=== PATIENT | male | born 1945 | race Hispanic/Latino ===

== ENCOUNTER 2019-02-15 17:21 | Inpatient (IN) | payer MEDICARE ==
[~2019-02-15] VITALS: Ht 177.8 cm; Wt 111.1 kg
[2019-02-15] MEDS ORDERED: ASPIRIN 81 MG CHEW TAB PO ONE (18:00)
[2019-02-15] MEDS ORDERED: LEVOTHYROXINE75 MCG PO (18:08)
[2019-02-15] MEDS ORDERED: ASPIR 8181 MG PO (18:08)
[2019-02-15] MEDS ORDERED: CLONIDINE HCL0.1 MG PO (18:08)
[2019-02-15] MEDS ORDERED: TERAZOSIN HCL5 MG PO (18:08)
[2019-02-15] MEDS ORDERED: AMLODIPINE BESY10 MG PO (18:08)
[2019-02-15 18:25] LABS: BASOPHILS # (AUTO) 0.1 (0.0-0.1); BASOPHILS % 0.7 % (0.0-1.0); EOSINOPHILS # (AUTO) 0.5 (0.0-0.4); EOSINOPHILS % 5.3 % (0.0-6.0); HEMATOCRIT 37.4 % (38.2-49.6); HEMOGLOBIN 12.4 g/dL (14.0-18.0); LYMPHOCYTES # (AUTO) 2.7 (1.0-3.2); LYMPHOCYTES % 27.3 % (18.0-39.1); MEAN CORPUSCULAR HEMOGLOBIN 29.5 pg (28-32); MEAN CORPUSCULAR HGB CONC 33.2 g/dL (31-35); MEAN CORPUSCULAR VOLUME 88.8 fL (81-99); MONOCYTES # (AUTO) 0.6 (0.2-0.8); MONOCYTES % 6.4 % (4.4-11.3); PLATELET COUNT 271 x10e3/uL (140-360); RED BLOOD COUNT 4.21 x10e6/uL (4.3-5.7); RED CELL DISTRIBUTION WIDTH 13.4 % (11.7-14.4)
[2019-02-15 18:32] LABS: INR 0.96; PROTHROMBIN TIME 13.3 seconds (11.9-14.5)
[2019-02-15 18:33] LABS: PARTIAL THROMBOPLASTIN TIME 32.6 seconds (23.8-35.5)
[2019-02-15 18:42] LABS: ALANINE AMINOTRANSFERASE 15 IU/L (0-55); ALBUMIN 3.4 g/dL (3.5-5.0); ALBUMIN/GLOBULIN RATIO 0.9 (0.8-2.0); ALKALINE PHOSPHATASE 90 IU/L (40-150); ANION GAP 13.6 mmol/L (8-16); BLOOD UREA NITROGEN 13 mg/dL (7-26); BUN/CREATININE RATIO 11 (6-25); CALCIUM 9.1 mg/dL (8.4-10.2); CARBON DIOXIDE 24 mmol/L (22-29); CHLORIDE 104 mmol/L (98-107); CREATINE KINASE 151 IU/L (30-200); CREATININE, SERUM 1.14 mg/dL (0.72-1.25); EST GLOMERULAR FILTRATION RATE > 60 ML/MIN (60-); GLUCOSE 107 mg/dL (74-118); POTASSIUM 3.6 mmol/L (3.5-5.1); SODIUM 138 mmol/L (136-145)
--- NOTE | 2019-02-15 19:41 | Diagnostic Imaging Report ---
A single frontal view of the chest. HISTORY: Chest pain COMPARISON: None available. DISCUSSION: Portable technique, limits sensitivity of the exam. Soft tissue attenuation partially limits sensitivity of the exam. Overlying monitoring leads. Tubes/Lines: None Lungs and pleura: Low lung volumes result in bibasilar vascular crowding, accentuation of the pulmonary interstitial markings, central pulmonary vasculature, and the cardiac silhouette. Allowing for these limitations, the findings are as follows: No evidence of a consolidative pneumonia or pulmonary alveolar edema. No definite pleural effusion or pneumothorax is identified. Heart and mediastinum: The cardiomediastinal silhouette appears unremarkable. Bones and soft tissues: Multiple median sternotomy wires. IMPRESSION: No acute radiographic abnormality. Signed by: Dr. Raymond Jefferson D.O., M.M.M. on 02/15/2019 7:37 PM
[2019-02-15] MEDS ORDERED: ENOXAPARIN INJ 80 MG/0.8 ML SYR SC SCH (21:00)
[2019-02-15] MEDS: CARVEDILOL 12.5 MG TAB PO SCH (21:55)
[2019-02-15] MEDS: BENZONATATE 100 MG CAP PO PRN (21:56)
--- NOTE | 2019-02-15 22:30 | NUR ---
patient came from ER, awake alert oriented, is with him, no distress noted. vitals checked, he ambulates with minimum help, will continue to monitor.
[2019-02-15 22:51] VITALS: BP 158/80
[2019-02-16] VITALS (8 sets, daily range): BP systolic 119–157; BP diastolic 55–88
--- NOTE | 2019-02-16 01:55 | NUR ---
patient awaken to draw blood. blood sent to lab for cardiac markers check.
[2019-02-16 02:28] LABS: CREATINE KINASE MB 1.4 ng/mL (0-5.0)
[2019-02-16 05:39] LABS: CHOL/HDL RATIO 5.7 (3.9-4.7)
--- NOTE | 2019-02-16 07:09 | NUR ---
called and spoke with dr Maguire,making sure he is aware that patient is consulted to him.
[2019-02-16] MEDS: ASPIRIN 81 MG CHEW TAB PO SCH (08:08)
[2019-02-16] MEDS: CLONIDINE HCL 0.1 MG TAB PO SCH ×2 (08:09→17:05)
[2019-02-16] MEDS ORDERED: LEVOTHYROXINE SODIUM 75 MCG TAB PO SCH (09:00)
[2019-02-16] MEDS ORDERED: ASPIRIN 81 MG CHEW TAB PO SCH (09:00)
[2019-02-16] MEDS: AMLODIPINE BESYLATE 10 MG TAB PO SCH (09:46)
[2019-02-16] MEDS: TERAZOSIN HCL 5 MG CAP PO SCH (09:46)
[2019-02-16] MEDS ORDERED: ALBUTEROL SULFATE HFA 8GM INHALATION AEROSOL INH PRN (10:30)
[2019-02-16] MEDS: CEFTRIAXONE SOD 1 GM/NS 50 ML 50 ML IV SCH ×2 (11:12→21:13)
[2019-02-16] MEDS: BENZONATATE 100 MG CAP PO PRN ×2 (11:17→21:13)
[2019-02-16 11:27] LABS: CREATINE KINASE MB 1.4 ng/mL (0-5.0)
[2019-02-16] MEDS: LOSARTAN POTASSIUM 100 MG TAB PO SCH (11:42)
--- NOTE | 2019-02-16 14:37 | Consultation ---
DATE OF CONSULTATION: 02/15/2019 REASON FOR CONSULTATION: Chest pain. HISTORY OF PRESENT ILLNESS: This is a pleasant 73-year-old male with history of CAD, who presented with chest pain. According to the patient, he had open heart surgery nine years ago at the medical center and has not been followed up with any cardiology since then. He has been seeing his PCP. He stated within the last one month he has been having shortness of breath that get worse with exertion and tight chest pain that had been radiating to the left arm. He stated that he saw the PCP and was sent to the emergency room for further evaluation. He stated he had a negative stress test last year with the PCP. He described the chest pain as a constant tight pressure on a scale of 10/10 that radiates to the left arm and shoulder that feels like numbness accompanied with shortness of breath. He is not able to move around without getting shortness of breath. Troponin x3 was negative. EKG showed normal sinus rhythm with no ST abnormalities. BNP was 84. Chest x-ray was negative. PAST MEDICAL HISTORY: CAD, hypertension, hypothyroidism, BPH. PAST SURGICAL HISTORY: Open heart surgery nine years ago. FAMILY HISTORY: Positive for CAD. SOCIAL HISTORY: No smoking. No drinking. He lives at home with his family. MEDICATIONS: He is on Norvasc, aspirin, clonidine, levothyroxine, and terazosin. ALLERGIES: HE IS NOT ALLERGIC TO ANY MEDICATION. REVIEW OF SYSTEMS: Negative except those mentioned above is positive with severe chest pain. PHYSICAL EXAMINATION: VITAL SIGNS: Temperature 98, heart rate 60, blood pressure 145/88, respirations 16, oxygen saturation 98% on 3 L nasal cannula. GENERAL: He is awake, alert, and oriented x3. HEENT: Mucous membranes moist. NECK: Supple. LUNGS: Bilateral clear to auscultation. CARDIOVASCULAR: S1, S2 present. ABDOMEN: Soft. NEUROLOGICAL: Intact. EXTREMITIES: With no edema. LABS: Sodium 138, potassium 3.6, chloride 104, CO2 of 24, BUN 13, creatinine 1.14, glucose 107. White blood cell 10.0, hemoglobin 12.4, hematocrit 37.4, platelets 271. PT 13.3, PTT 32.6, INR 0.96. IMPRESSION: 1. Chest pain. 2. Coronary artery disease with CABG. 3. Hypertension. 4. Hypothyroidism. 5. History of benign prostatic hypertrophy. PLAN: 1. We will get serial cardiac enzymes. 2. We will get echocardiogram to assess the LV and the valve function. 3. Due to his history of open heart surgery nine years ago, we plan to do a cardiac catheterization this afternoon to rule out any reocclusion. We will keep him n.p.o. and get a consent. Risk and benefit explained to him and he wanted to proceed. 4. We will continue his home medication. Further cardiac workup pending clinical course. Thank you for this consultation. Dictated by Scott Delacruz, MELITON MD JACE Law/SANDY /[id number]
[2019-02-16] MEDS: CARVEDILOL 12.5 MG TAB PO SCH (17:05)
--- NOTE | 2019-02-16 20:29 | NUR ---
Report received from AM RN. Patient received resting on his bed with denied pain ans no SOB. Respiration even and unlabored. Bed in lower position,locked. Will continue to monitor.
[2019-02-16] MEDS: TAMSULOSIN HCL 0.4 MG CAP PO SCH (21:13)
[2019-02-16] MEDS: ATORVASTATIN 10 MG TAB PO SCH (21:13)
[2019-02-17] VITALS (8 sets, daily range): BP systolic 102–151; BP diastolic 49–81
[2019-02-17] MEDS: LEVOTHYROXINE SODIUM 88 MCG TAB PO SCH (05:41)
[2019-02-17 05:46] LABS: BASOPHILS # (AUTO) 0.1 (0.0-0.1); BASOPHILS % 0.7 % (0.0-1.0); EOSINOPHILS # (AUTO) 0.6 (0.0-0.4); EOSINOPHILS % 5.9 % (0.0-6.0); HEMATOCRIT 39.7 % (38.2-49.6); LYMPHOCYTES # (AUTO) 2.9 (1.0-3.2); LYMPHOCYTES % 29.8 % (18.0-39.1); MEAN CORPUSCULAR HGB CONC 32.7 g/dL (31-35); MEAN CORPUSCULAR VOLUME 88.6 fL (81-99); MONOCYTES # (AUTO) 0.7 (0.2-0.8); MONOCYTES % 7.7 % (4.4-11.3); NEUTROPHILS # (AUTO) 5.3 (2.1-6.9); NEUTROPHILS % 55.5 % (38.7-80.0); PLATELET COUNT 283 x10e3/uL (140-360); RED BLOOD COUNT 4.48 x10e6/uL (4.3-5.7); RED CELL DISTRIBUTION WIDTH 13.4 % (11.7-14.4)
--- NOTE | 2019-02-17 06:03 | NUR ---
Patient taking shower at this time.
[2019-02-17 06:17] LABS: ALANINE AMINOTRANSFERASE 17 IU/L (0-55); ALBUMIN/GLOBULIN RATIO 0.8 (0.8-2.0); ALKALINE PHOSPHATASE 79 IU/L (40-150); ANION GAP 11.5 mmol/L (8-16); BLOOD UREA NITROGEN 13 mg/dL (7-26); BUN/CREATININE RATIO 12 (6-25); CALCIUM 9.2 mg/dL (8.4-10.2); CARBON DIOXIDE 25 mmol/L (22-29); CHLORIDE 106 mmol/L (98-107); CREATININE, SERUM 1.07 mg/dL (0.72-1.25); EST GLOMERULAR FILTRATION RATE > 60 ML/MIN (60-); GLUCOSE 102 mg/dL (74-118); POTASSIUM 4.5 mmol/L (3.5-5.1); SODIUM 138 mmol/L (136-145)
--- NOTE | 2019-02-17 07:05 | NUR ---
Report given to RN,walking round done.
[2019-02-17] MEDS ORDERED: LIDOCAINE HCL 2% LOCAL 20 ML VIAL ONE (08:46)
[2019-02-17] MEDS ORDERED: HEPARIN SOD/SOD CHLORIDE 2,000 ML ONE (08:46)
[2019-02-17] MEDS ORDERED: IOPAMIDOL 370 MG/ML 200 ML INFUS..BTL INJ ONE ×2 (08:46→09:28)
--- NOTE | 2019-02-17 08:50 | NUR ---
PATIENT OFF UNIT TO [facility]
[2019-02-17] MEDS ORDERED: MIDAZOLAM HCL 2 MG/2 ML VIAL ONE (09:03)
[2019-02-17] MEDS ORDERED: FENTANYL CITRATE/PF 100MCG/2 ML INJ ONE (09:04)
[2019-02-17] MEDS ORDERED: SODIUM CHLORIDE 0.9% 1000ML 1,000 ML ONE (09:06)
[2019-02-17] MEDS ORDERED: HEPARIN SOD (PORCINE) 1000 UNIT/ML 30ML ONE (09:53)
[2019-02-17] MEDS ORDERED: HYDRALAZINE HCL 20 MG/ML VIAL ONE (10:16)
[2019-02-17] MEDS: CLONIDINE HCL 0.1 MG TAB PO SCH ×2 (11:01→16:41)
[2019-02-17] MEDS: ASPIRIN 81 MG CHEW TAB PO SCH (11:01)
[2019-02-17] MEDS: TERAZOSIN HCL 5 MG CAP PO SCH (11:01)
[2019-02-17] MEDS: CARVEDILOL 12.5 MG TAB PO SCH ×2 (11:01→16:41)
[2019-02-17] MEDS: LOSARTAN POTASSIUM 100 MG TAB PO SCH (11:01)
[2019-02-17] MEDS: AMLODIPINE BESYLATE 10 MG TAB PO SCH (11:02)
[2019-02-17] MEDS: CEFTRIAXONE SOD 1 GM/NS 50 ML 50 ML IV SCH ×2 (11:02→22:18)
[2019-02-17] MEDS: FINASTERIDE 5 MG TAB PO SCH (11:02)
[2019-02-17] MEDS ORDERED: HYDRALAZINE HCL 20 MG/ML VIAL IV PRN (11:15)
--- NOTE | 2019-02-17 15:18 | NUR ---
weal dorsal pedal pulse palpated and confirmed by doppler, dr mattson notified no new orders, continue to monitor Addendum: 02/17/19 at 1520 by Beverly Pritchard RN weak
--- NOTE | 2019-02-17 19:00 | NUR ---
Patient resting on his bed.Denied pain and no SOB. Respiration even and unlabored. in the room. Patient instructed to call for help as needed. Call elaine within reach. Will continue to monitor.
--- NOTE | 2019-02-17 20:00 | NUR ---
Patient had weak pluses on his right foot, with Doppler pulses noted good at this time. Will continue to monitor.
[2019-02-17] MEDS: ATORVASTATIN 10 MG TAB PO SCH (22:18)
[2019-02-17] MEDS: TAMSULOSIN HCL 0.4 MG CAP PO SCH (22:18)
[2019-02-17] MEDS: BENZONATATE 100 MG CAP PO PRN (22:19)
[2019-02-18 00:37] VITALS: BP 122/60
[2019-02-18 04:43] VITALS: BP 143/89
[2019-02-18 05:27] LABS: BASOPHILS # (AUTO) 0.1 (0.0-0.1); BASOPHILS % 0.6 % (0.0-1.0); EOSINOPHILS # (AUTO) 0.5 (0.0-0.4); EOSINOPHILS % 4.5 % (0.0-6.0); HEMATOCRIT 39.7 % (38.2-49.6); HEMOGLOBIN 12.9 g/dL (14.0-18.0); LYMPHOCYTES # (AUTO) 2.9 (1.0-3.2); LYMPHOCYTES % 26.5 % (18.0-39.1); MEAN CORPUSCULAR HEMOGLOBIN 28.9 pg (28-32); MEAN CORPUSCULAR HGB CONC 32.5 g/dL (31-35); MEAN CORPUSCULAR VOLUME 88.8 fL (81-99); MONOCYTES # (AUTO) 0.8 (0.2-0.8); MONOCYTES % 7.1 % (4.4-11.3); NEUTROPHILS # (AUTO) 6.5 (2.1-6.9); NEUTROPHILS % 60.8 % (38.7-80.0); PLATELET COUNT 270 x10e3/uL (140-360); RED BLOOD COUNT 4.47 x10e6/uL (4.3-5.7); RED CELL DISTRIBUTION WIDTH 13.4 % (11.7-14.4)
[2019-02-18 05:58] LABS: ALANINE AMINOTRANSFERASE 18 IU/L (0-55); ALBUMIN 2.9 g/dL (3.5-5.0); ALBUMIN/GLOBULIN RATIO 0.8 (0.8-2.0); ALKALINE PHOSPHATASE 77 IU/L (40-150); ANION GAP 10.6 mmol/L (8-16); BLOOD UREA NITROGEN 16 mg/dL (7-26); BUN/CREATININE RATIO 15 (6-25); CARBON DIOXIDE 24 mmol/L (22-29); CHLORIDE 106 mmol/L (98-107); CREATININE, SERUM 1.09 mg/dL (0.72-1.25); EST GLOMERULAR FILTRATION RATE > 60 ML/MIN (60-); GLUCOSE 103 mg/dL (74-118); POTASSIUM 4.6 mmol/L (3.5-5.1); SODIUM 136 mmol/L (136-145)
[2019-02-18] MEDS: BENZONATATE 100 MG CAP PO PRN (06:00)
[2019-02-18] MEDS: LEVOTHYROXINE SODIUM 88 MCG TAB PO SCH (06:00)
[2019-02-18 07:13] VITALS: BP 129/59
--- NOTE | 2019-02-18 07:23 | NUR ---
Report given to oncoming nurse,walking round done.
[2019-02-18 07:30] VITALS: BP 129/59
[2019-02-18] MEDS: ASPIRIN 81 MG CHEW TAB PO SCH (08:39)
[2019-02-18] MEDS: CLONIDINE HCL 0.1 MG TAB PO SCH ×2 (08:40→16:30)
[2019-02-18] MEDS: LOSARTAN POTASSIUM 100 MG TAB PO SCH (08:40)
[2019-02-18] MEDS: CARVEDILOL 12.5 MG TAB PO SCH ×2 (08:40→16:31)
[2019-02-18] MEDS: TERAZOSIN HCL 5 MG CAP PO SCH (08:40)
[2019-02-18] MEDS: FINASTERIDE 5 MG TAB PO SCH (08:40)
[2019-02-18] MEDS: AMLODIPINE BESYLATE 10 MG TAB PO SCH (08:40)
[2019-02-18] MEDS: CEFTRIAXONE SOD 1 GM/NS 50 ML 50 ML IV SCH (09:56)
[2019-02-18 11:33] VITALS: BP 130/59
[2019-02-18 15:06] VITALS: BP 110/51
--- NOTE | 2019-02-18 16:10 | NUR ---
Visit made by the Spiritual Care Department Pastoral Visitor, Fredy Yanez. PV provided pastoral presence, communion, prayer, hospitality, and supportive listening. Pastoral Visitor informed pt/family of the scope of [facility] and availability. YENIFER ACOSTA Barley Steeper Spiritual Care Department O: [phone] Pager: [phone] ([phone] number calling from)
--- NOTE | 2019-02-18 20:59 | Discharge Summary ---
HISTORY: He is a 73-year-old male patient of mine, presented to the emergency room with a complaint of chest pain and shortness of breath. ADMITTING IMPRESSION AND DIAGNOSES: Unstable angina in a patient with a history of carotid disease and previous coronary artery bypass surgery and CABG, hypertension, hyperthyroidism. The patient also had bronchitis and bronchopneumonia. HOSPITAL COURSE/SUMMARY: The patient was admitted with the above diagnoses. The patient had serial EKG, cardiac enzymes, echocardiogram, and the patient was also given Rocephin antibiotic. The patient had cardiac catheterization planned and was done. The patient was found to have a 2-vessel disease. The patient's echocardiogram has 60% to 65% ejection fraction, but the patient has aortic stenosis. On coronary angiogram, the patient has SVG to obtuse marginal graft that is patent and the patient has SHERMAN to LAD that is occluded. The patient has 40% to 50% lesion. The patient was advised for a medical therapy and the patient will need transesophageal echocardiogram for checkup on the aortic valve in the heart. The patient will be having aggressive lipid management. The patient will be also started on beta-skyler, carvedilol. The patient will have aspirin with coreg and statin. The patient will follow up with me as well as with Cardiology for outpatient ERIC. MD QUINTIN Short/MODL /[id number] MTDD
--- NOTE | 2019-02-22 12:15 | Myoview Stress Test ---
DATE OF STUDY: 02/16/2019 08:33:00 ECHO COMPLETE (ECHOCARDIOGRAM) CARDIAC CATHETERIZATION REPORT INDICATIONS: Unstable angina and history of CABG. ANESTHESIA: A 2% lidocaine for local anesthesia and fentanyl and versed for conscious sedation. BLOOD LOSS: 5 mL. DESCRIPTION OF PROCEDURE: After informed consent, the patient was brought to the cardiac catheterization laboratory and placed on table. Both groins were painted and draped in a sterile fashion. Lidocaine was injected in right groin for local anesthesia. Right femoral artery was accessed by Seldinger technique and a 5-Israeli sheath was placed in right femoral artery. The left main artery was cannulated using a JL4 5-Israeli catheter and coronary angiogram was performed and images were obtained in multiple views. The right coronary artery was cannulated using a 3DRC 5-Israeli catheter. Coronary angiogram performed was images were obtained in multiple views. The saphenous vein graft to the diagonal branch was cannulated using 3DRC catheter. Coronary angiogram was performed and images were obtained in multiple views. The saphenous vein graft to the obtuse marginal branch was cannulated using a 3DRC catheter. Coronary angiogram was performed and images were obtained in multiple views. SHERMAN was cut and elected using SHERMAN catheter. Coronary angiogram was performed and images were obtained in multiple views. An RCB catheter was used to look for other right coronary graft, but none was noted. During torquing of the RCB catheter, there was kinking of the catheter in the iliac artery. There were two kinks noted, so Amplatz wire was advanced and one of the kink was removed, but the Amplatz wire would not advance into the other kink, so a Glidewire was used and the kink was removed and the catheter was removed. The arteriotomy site was closed using a Vascade closure device. Good hemostasis was secured. The patient tolerated the procedure without any complications. REPORT: 1. Left main; normal caliber and has 40% to 50% distal lesion. 2. Left anterior descending; this is of normal caliber and has 50% proximal lesion. The first diagonal branch has 70% proximal lesion. 3. Left circumflex; normal caliber and has 40% mid lesion. 4. Right coronary artery; normal caliber with 90% ostial lesion. It is a non-dominant vessel. 5. Saphenous vein graft to the diagonal is patent. 6. Saphenous vein graft to the obtuse marginal branch is patent. 7. SHERMAN to the LAD is atretic and is totally occluded in mid segment. PLAN: Medical management. MD ISAC Law/SANDY /[id number]
== END 2019-02-18 18:15 | disposition home or self-care (01) | DRG 286 ==
LOC: ER 17:21 → ERHOLD 18:00 → IMCU 22:28
PROVIDERS: ADMIT Internal Medicine; ATTEND Internal Medicine
PROC: 4A023N7 Measurement of Cardiac Sampling and Pressure, Left Heart, Percutaneous Approach (ICD-10-PCS; principal; 2019-02-17)
PROC: B2121ZZ Fluoroscopy of Single Coronary Artery Bypass Graft using Low Osmolar Contrast (ICD-10-PCS; 2019-02-17)
PROC: B2111ZZ Fluoroscopy of Multiple Coronary Arteries using Low Osmolar Contrast (ICD-10-PCS; 2019-02-17)
PROC: B2181ZZ Fluoroscopy of Left Internal Mammary Bypass Graft using Low Osmolar Contrast (ICD-10-PCS; 2019-02-17)
DX: I25.110 Atherosclerotic heart disease of native coronary artery with unstable angina pectoris (principal); J18.0 Bronchopneumonia, unspecified organism; Z95.1 Presence of aortocoronary bypass graft; I10 Essential (primary) hypertension; E05.90 Thyrotoxicosis, unspecified without thyrotoxic crisis or storm; J40 Bronchitis, not specified as acute or chronic; I25.720 Atherosclerosis of autologous artery coronary artery bypass graft(s) with unstable angina pectoris; N40.0 Benign prostatic hyperplasia without lower urinary tract symptoms; I25.710 Atherosclerosis of autologous vein coronary artery bypass graft(s) with unstable angina pectoris; I35.0 Nonrheumatic aortic (valve) stenosis
CPT/HCPCS: 36415; 71045; 80053; 80061; 82550; 82553; 83880; 84484; 85025; 85610; 85730; 93005; 93306; 93455; 99284; C1760; C1769; J0360; J0696; J1644; J1650; J2001; J2250; J7030; Q9967

== ENCOUNTER 2019-04-24 14:31 | Observation (INO) | payer MEDICARE ==
[2019-04-20 11:41] LABS: BASOPHILS # (AUTO) 0.1 (0.0-0.1); BASOPHILS % 0.6 % (0.0-1.0); EOSINOPHILS # (AUTO) 0.5 (0.0-0.4); EOSINOPHILS % 4.7 % (0.0-6.0); HEMATOCRIT 40.6 % (38.2-49.6); HEMOGLOBIN 13.6 g/dL (14.0-18.0); LYMPHOCYTES # (AUTO) 3.4 (1.0-3.2); MEAN CORPUSCULAR HEMOGLOBIN 29.4 pg (28-32); MEAN CORPUSCULAR HGB CONC 33.5 g/dL (31-35); MEAN CORPUSCULAR VOLUME 87.7 fL (81-99); MONOCYTES # (AUTO) 0.8 (0.2-0.8); MONOCYTES % 7.4 % (4.4-11.3); NEUTROPHILS # (AUTO) 5.8 (2.1-6.9); NEUTROPHILS % 54.9 % (38.7-80.0); PLATELET COUNT 303 x10e3/uL (140-360); RED BLOOD COUNT 4.63 x10e6/uL (4.3-5.7); RED CELL DISTRIBUTION WIDTH 13.3 % (11.7-14.4)
[2019-04-20 12:00] LABS: ALANINE AMINOTRANSFERASE 22 IU/L (0-55); ALBUMIN 3.7 g/dL (3.5-5.0); ALKALINE PHOSPHATASE 92 IU/L (40-150); ANION GAP 10.2 mmol/L (8-16); BLOOD UREA NITROGEN 15 mg/dL (7-26); BUN/CREATININE RATIO 13 (6-25); CALCIUM 9.6 mg/dL (8.4-10.2); CARBON DIOXIDE 28 mmol/L (22-29); CHLORIDE 104 mmol/L (98-107); CREATININE, SERUM 1.14 mg/dL (0.72-1.25); EST GLOMERULAR FILTRATION RATE > 60 ML/MIN (60-); GLUCOSE 94 mg/dL (74-118); POTASSIUM 4.2 mmol/L (3.5-5.1); SODIUM 138 mmol/L (136-145)
[~2019-04-24] VITALS: Ht 177.8 cm; Wt 112.9 kg
[2019-04-24] VITALS (10 sets, daily range): BP systolic 108–145; BP diastolic 52–87
[~2019-04-24 14:31] MED LIST: AMLODIPINE BESY10 MG PO; ASPIR 8181 MG PO; CARVEDILOL12.5 MG PO; CLONIDINE HCL0.1 MG PO; FLOMAX0.4 MG PO; LEVOTHYROXINE75 MCG PO; LOSARTAN POTASS25 MG PO; TERAZOSIN HCL5 MG PO
--- OUTSIDE RECORDS SUMMARY | 2019-04-24 14:36 | XMS REPORT ---
[facility] Address Unknown Phone Unavailable Care Team Providers Care Resident Care Aide Name Role Phone Dalia SZYMANSKI Unavailable Unavailable Problems This patient has no known problems. Allergies, Adverse Reactions, Alerts This patient has no known allergies or adverse reactions. Medications This patient has no known medications. Results Test Description Test Time Test Comments Text Results Atomic Results Result Comments ECHO COMPLETE (ECHOCARDIOGRAM) 2019-02-17 21:51:00 [place] [address] Patient Name : CHRISTELLE OCONNOR MR #: [id number] : 1945 Age/Sex: 74/M Adm Physician : JULIANNE SZYMANSKI MD Admit Date : 02/15/19 Location : [facility] Room/Bed : [place] [address] REPORT: Myoview Stress Test DATE OF STUDY: 02/16/2019 08:33:00 ECHO COMPLETE (ECHOCARDIOGRAM) CARDIAC CATHETERIZATION REPORT INDICATIONS: Unstable angina and history of CABG. ANESTHESIA: A 2% lidocaine for local anesthesia and fentanyl and versed for conscious sedation. BLOOD LOSS: 5 mL. DESCRIPTION OF PROCEDURE: After informed consent, the patient was brought to the cardiac catheterization laboratory and placed on table. Both groins were painted and draped in a sterile fashion. Lidocaine was injected in right groin for local anesthesia. Right femoral artery was accessed by Seldinger technique and a 5-Fr ench sheath was placed in right femoral artery. The left main artery was cannulated using a JL4 5-Somali catheter and coronary angiogram was performed and images were obtained in multiple views. The right coronary artery was cannulated using a 3DRC 5-Somali catheter. Coronary angiogram performed was images were obtained in multiple views. The saphenous vein graft to the diagonal branch was cannulated using 3DRC catheter. Coronary angiogram was performed and images were obtained in multiple views. The saphenous vein graft to the obtuse marginal branch was cannulated using a 3DRC catheter. Coronary angiogram was performed and images were obtained in multiple views. SHERMAN was cut and elected using SHERMAN catheter. Coronary angiogram was performed and images were obtained in multiple views. An RCB catheter was used to look for other right coronary graft, but none was noted. During torquing of the RCB catheter, there was kinking of the catheter in the iliac artery. There were two kinks noted, so Amplatz wire was advanced and one of the kink was removed, but the Amplatz wire would not advance into the other kink, so a Glidewire was used and the kink was removed and the catheter was removed. The arteriotomy site was closed using a Vascade closure device. Good hemostasis was secured. The patient tolerated the procedure without any complications. REPORT: 1. Left main; normal caliber and has 40% to 50% distal lesion. 2. Left anterior descending; this is of normal caliber and has 50% proximal lesion. The first diagonal branch has 70% proximal lesion. 3. Left circumflex; normal caliber and has 40% mid lesion. 4. Right coronary artery; normal caliber with 90% ostial lesion. It is a non-dominant vessel. 5. Saphenous vein graft to the diagonal is patent. 6. Saphenous vein graft to the obtuse marginal branch is patent. 7. SHERMAN to the LAD is atretic and is totally occluded in mid segment. PLAN: Medical management. MD ISAC Law/SANDY /[id number] Signature Date Dictated By: SULEMA REYNOSO MD Transcribed By: SANDY on 02/17/19 COPY TO: SULEMA REYNOSO MD; JULIANNE SZYMANSKI MD CHEST SINGLE (PORTABLE) 2019-02-15 19:36:00 [place] [address] Patient Name: CHRISTELLE OCONNOR MR #: [id number] : 1945 Age/Sex: 73/M Req #: [id number] Adm Physician: JULIANNE SZYMANSKI MD Ordered by: MARTY SHI MAST MAKER Report #: [id number] Location: [facility] Room/Bed: [place] [address] Procedure: [id number] DX/CHEST SINGLE (PORTABLE) Exam Date: 02/15/19 Exam Time: 1855 REPORT STATUS: Signed A single frontal view of the chest. HISTORY: Chest pain COMPARISON: None available. DISCUSSION: Portable technique, limits sensitivity of the exam. Soft tissue attenuation partially limits sensitivity of the exam. Overlying monitoring leads. Tubes/Lines: None Lungs and pleura: Low lung volumes result in bibasilar vascular crowding, accentuation of the pulmonary interstitial markings, central pulmonary vasculature, and the cardiac silhouette. Allowing for these limitations, the findings are as follows: No evidence of a consolidative pneumonia or pulmonary alveolar edema. No definite pleural effusion or pneumothorax is identified. Heart and mediastinum: The cardiomediastinal silhouette appears unremarkable. Bones and soft tissues: Multiple median sternotomy wires. IMPRESSION: No acute radiographic abnormality. Signed by: Dr. Melchor Jefferson D.O., M.M.M. on 02/15/2019 7:37 PM Dictated By: MELCHOR JEFFERSON DO 36 Transcribed By: SARAY on 02/15/191936 COPY TO: MARTY SHI MAST MAKER
[2019-04-24] MEDS ORDERED: DIPHENHYDRAMINE HCL 25 MG CAP ONE (14:49)
[2019-04-24] MEDS ORDERED: ALPRAZOLAM 0.5 MG TAB ONE (14:49)
[2019-04-24] MEDS ORDERED: HEPARIN SOD/SOD CHLORIDE 2,000 ML ONE (17:07)
[2019-04-24] MEDS ORDERED: MIDAZOLAM HCL 2 MG/2 ML VIAL ONE ×2 (17:07→17:44)
[2019-04-24] MEDS ORDERED: FENTANYL CITRATE/PF 100MCG/2 ML INJ ONE (17:07)
[2019-04-24] MEDS ORDERED: IOPAMIDOL 370 MG/ML 200 ML INFUS..BTL INJ ONE (17:07)
[2019-04-24] MEDS ORDERED: SODIUM CHLORIDE 0.9% 1000ML 1,000 ML ONE ×2 (17:08→17:32)
[2019-04-24] MEDS ORDERED: LIDOCAINE HCL 2% LOCAL 20 ML VIAL ONE (17:08)
[2019-04-24] MEDS ORDERED: BIVALRIUDIN 250 MG/VIAL VIAL IV ONE (17:37)
[2019-04-24] MEDS ORDERED: SODIUM CHLORIDE 0.9% 50ML 50 ML ONE (17:37)
[2019-04-24] MEDS ORDERED: TICAGRELOR 90 MG TABLET ONE (18:17)
[2019-04-24] MEDS ORDERED: ASPIRIN 325 MG TAB ONE (18:18)
--- NOTE | 2019-04-24 18:35 | NUR ---
Continuity of care to recovery. review of procedural findings and medications given with MD. Patient drowsy, easily aroused. maintains airway and room air saturations of 98-99%. No gross issues of pressure, pain, pallor or dysrhythmia. asymptomatic bradycardia persistent, IV site patent with NS 0.9% at 75ml/hr by dial-flow. patient hemodynamically stable with hemostasis right groin dressing CDI w/o s/s of bleeding. patient transferred to [facility] w/o incident. transported to [facility] holding - [facility] [place] procedure: atherectomy and stent of left main Sheath puller: Kendy 6fr Perclose right groin Meds Given Intra-Procedure Sedatives Versed - 4 mg Fentanyl - 100 mcg Anticoagulants Angiomax - 17ml bolus then gtt to completion of 250mg total Fluids Input - 500ml Output - dtv Contrast Isovue 370 - 125ml Other Meds Brilinta 180 mg PO Aspirin 325mg PO
[2019-04-24] MEDS: SODIUM CHLORIDE 0.9% 1000ML 1,000 ML IV SCH (18:45)
[2019-04-24] MEDS ORDERED: MORPHINE SULFATE INJ 4 MG/ML INJ 1ML IV PRN (18:45)
--- NOTE | 2019-04-24 19:45 | NUR ---
Pt meets transfer criteria. overall general assessed for s/s of complication and presence of hematoma to right groin. skin warm, dry, no discolor, and pulses present. IV patent 20g to left anterior forearm w/ 0.9% ns @ 75ml/hr per dial flow. VS WNL. Pt denies pain, sob, or need at this time. Family at bedside. Review of POC , verbalized understanding. report called to "Hunter" rn and reported facts of the first note. telemetry placed and transferred to [facility] . no gross issues at this time. see VS document worksheet - cgf
[2019-04-24] MEDS ORDERED: ATORVASTATIN 20 MG TAB PO SCH (21:00)
[2019-04-25 00:12] VITALS: BP 131/58
--- NOTE | 2019-04-25 03:22 | Operative Report ---
DATE OF PROCEDURE: 04/24/2019 SURGEON: Gordy Larry MD INDICATIONS: Coronary artery disease, unstable angina. PROCEDURES PERFORMED: 1. Left heart catheterization, selective coronary angiography. 2. Atherectomy and stent placement in left main and left anterior descending artery. COMPLICATIONS: None. RECOMMENDATIONS: Dual antiplatelet therapy for life. DESCRIPTION OF PROCEDURE: Access was obtained in the right femoral artery, 6-Swedish sheath was placed. The patient received intravenous, oral Brilinta and aspirin for anticoagulation. The left main was cannulated using an XB3.56-Swedish guiding catheter, the left main 90% stenosis, left anterior descending artery 80-90% heavily calcified, lesion was crossed using a wire, which was exchanged to a Compassofter wire. Orbital atherectomy was performed. Balloon dilatation with x 24 mm Synergy stent was deployed, post dilated with a 3.5 mm balloon. Excellent end result, less than 10% residual stenosis, LUL-3 flow. No complications. Right groin repaired using Perclose. Patient was observed in the hospital overnight. Gordy Larry MD KSB/MODL /[id number]
[2019-04-25 04:30] VITALS: BP 132/63
[2019-04-25] MEDS ORDERED: LEVOTHYROXINE SODIUM 75 MCG TAB PO SCH (06:00)
[2019-04-25 07:12] VITALS: BP 142/68
[2019-04-25] MEDS: SODIUM CHLORIDE 0.9% 1000ML 1,000 ML IV SCH (08:05)
[2019-04-25 08:56] VITALS: BP 142/68
[2019-04-25] MEDS ORDERED: CLOPIDOGREL BISULFATE 75 MG TAB PO SCH (09:00)
[2019-04-25] MEDS ORDERED: CARVEDILOL 12.5 MG TAB PO SCH (09:00)
[2019-04-25] MEDS ORDERED: LOSARTAN POTASSIUM 25 MG TAB PO SCH (09:00)
[2019-04-25] MEDS ORDERED: TAMSULOSIN HCL 0.4 MG CAP PO SCH (09:00)
[2019-04-25] MEDS ORDERED: AMLODIPINE BESYLATE 10 MG TAB PO SCH (09:00)
[2019-04-25] MEDS ORDERED: ASPIRIN 81 MG CHEW TAB PO SCH (09:00)
[2019-04-25] MEDS ORDERED: CLONIDINE HCL 0.1 MG TAB PO SCH (09:00)
[2019-04-25] MEDS ORDERED: PLAVIX75 MG PO (10:16)
[2019-04-25] MEDS ORDERED: ATORVASTATIN CA20 MG PO (10:17)
[2019-04-25] MEDS ORDERED: LIPITOR20 MG (10:17)
[2019-04-25] MEDS ORDERED: ATORVASTATIN 40 MG TAB PO SCH (21:00)
== END 2019-04-25 10:45 | disposition home or self-care (01) ==
LOC: CATH LAB 14:31 → IMCU 20:03
PROVIDERS: ADMIT Internal Medicine Interventional Cardiology; ATTEND Internal Medicine Interventional Cardiology
DX: I25.708 Atherosclerosis of coronary artery bypass graft(s), unspecified, with other forms of angina pectoris (principal); Z01.812 Encounter for preprocedural laboratory examination; I10 Essential (primary) hypertension; I73.9 Peripheral vascular disease, unspecified; I35.0 Nonrheumatic aortic (valve) stenosis; J45.909 Unspecified asthma, uncomplicated; Z82.49 Family history of ischemic heart disease and other diseases of the circulatory system
CPT/HCPCS: 93458; C1874; C9602; 36415; 80053; 85025; 92933; C1724; C1725; C1769; C1887; G0378; J0583; J2001; J2250; J7030; Q9967

== ENCOUNTER 2019-05-29 12:02 | Emergency (ER) | payer MEDICARE ==
[~2019-05-29] VITALS: Ht 177.8 cm; Wt 112.9 kg
[~2019-05-29 12:02] MED LIST changes: -ASPIRIN 325 MG TAB ONE; -CRESTOR10 MG PO; -FENTANYL CITRATE/PF 100MCG/2 ML INJ ONE; -HEPARIN SOD (PORCINE) 1000 UNIT/ML 30ML ONE; -HEPARIN SOD/SOD CHLORIDE 2,000 ML ONE; -IOPAMIDOL 300MG/ML 100 ML INFUS..BTL IV ONE; -LIDOCAINE HCL 2% LOCAL 20 ML VIAL ONE; -MIDAZOLAM HCL 2 MG/2 ML VIAL ONE; -NITROGLYCERIN/D5W 200 MCG/ML 250 ML ONE; -SODIUM CHLORIDE 0.9% 1000ML 1,000 ML ONE; -TICAGRELOR 90 MG TABLET ONE; -VERAPAMIL HCL 2.5 MG/ML 2 ML VIAL ONE
--- NOTE | 2019-05-29 12:20 | NUR ---
PATIENT TRANSPORTED TO [employer] [facility]RETCH[facility] BY [employer] NURSE.
[2019-06-29] MEDS ORDERED: CRESTOR10 MG PO (14:51)
== END 2019-05-29 13:17 | disposition left against medical advice (07) ==
LOC: ER 12:02
DX: R69 Illness, unspecified (principal)

== ENCOUNTER → 2019-05-29 | Day surgery (SDC) | payer MEDICARE ==
[2019-05-25 15:47] LABS: BASOPHILS # (AUTO) 0.1 (0.0-0.1); BASOPHILS % 0.6 % (0.0-1.0); EOSINOPHILS # (AUTO) 0.6 (0.0-0.4); EOSINOPHILS % 5.1 % (0.0-6.0); HEMATOCRIT 38.2 % (38.2-49.6); HEMOGLOBIN 12.7 g/dL (14.0-18.0); LYMPHOCYTES # (AUTO) 3.5 (1.0-3.2); LYMPHOCYTES % 29.8 % (18.0-39.1); MEAN CORPUSCULAR HEMOGLOBIN 29.3 pg (28-32); MEAN CORPUSCULAR HGB CONC 33.2 g/dL (31-35); MONOCYTES # (AUTO) 0.8 (0.2-0.8); MONOCYTES % 6.5 % (4.4-11.3); NEUTROPHILS # (AUTO) 6.7 (2.1-6.9); NEUTROPHILS % 57.7 % (38.7-80.0); PLATELET COUNT 319 x10e3/uL (140-360); RED BLOOD COUNT 4.34 x10e6/uL (4.3-5.7); RED CELL DISTRIBUTION WIDTH 13.4 % (11.7-14.4)
[2019-05-25 16:02] LABS: INR 0.92; PROTHROMBIN TIME 12.9 seconds (11.9-14.5)
[2019-05-25 16:24] LABS: ALANINE AMINOTRANSFERASE 20 IU/L (0-55); ALBUMIN 3.9 g/dL (3.5-5.0); ALKALINE PHOSPHATASE 85 IU/L (40-150); ANION GAP 13.7 mmol/L (8-16); BLOOD UREA NITROGEN 18 mg/dL (7-26); BUN/CREATININE RATIO 16 (6-25); CALCIUM 9.6 mg/dL (8.4-10.2); CARBON DIOXIDE 26 mmol/L (22-29); CHLORIDE 104 mmol/L (98-107); CREATININE, SERUM 1.13 mg/dL (0.72-1.25); EST GLOMERULAR FILTRATION RATE > 60 ML/MIN (60-); GLUCOSE 88 mg/dL (74-118); POTASSIUM 3.7 mmol/L (3.5-5.1); SODIUM 140 mmol/L (136-145)
[~2019-05-29] VITALS: Ht 177.8 cm; Wt 112.9 kg
[2019-05-29] VITALS (8 sets, daily range): BP systolic 118–147; BP diastolic 62–71
[~2019-05-29] MED LIST changes: +ASPIRIN 325 MG TAB ONE; +ATORVASTATIN CA20 MG PO; +CRESTOR10 MG PO; +FENTANYL CITRATE/PF 100MCG/2 ML INJ ONE; +HEPARIN SOD (PORCINE) 1000 UNIT/ML 30ML ONE; +HEPARIN SOD/SOD CHLORIDE 2,000 ML ONE; +IOPAMIDOL 300MG/ML 100 ML INFUS..BTL IV ONE; +LIDOCAINE HCL 2% LOCAL 20 ML VIAL ONE; +LIPITOR20 MG; +MIDAZOLAM HCL 2 MG/2 ML VIAL ONE; +NITROGLYCERIN/D5W 200 MCG/ML 250 ML ONE; +PLAVIX75 MG PO; +SODIUM CHLORIDE 0.9% 1000ML 1,000 ML ONE; +TICAGRELOR 90 MG TABLET ONE; +VERAPAMIL HCL 2.5 MG/ML 2 ML VIAL ONE
--- NOTE | 2019-05-29 10:13 | Operative Report ---
DATE OF PROCEDURE: 05/29/2019 SURGEON: Gordy Larry MD CARDIAC CONTROLLER MECHANIC PROCEDURE INDICATIONS: Peripheral arterial disease, claudication of both lower extremity. PROCEDURES PERFORMED: 1. Abdominal aortogram. 2. Bilateral lower extremity angiograms. 3. Selective catheter placement from the left femoral artery to the right superficial femoral artery. 4. Additional third-order catheter placement from the left femoral artery to the right posterior tibial artery. 5. Atherectomy and drug-coated balloon angioplasty of the right femoral artery. 6. Secondary thrombectomy of the right femoral artery. 7. Deployment of left groin Perclose closure device. COMPLICATIONS: None. RECOMMENDATIONS: Medical therapy. DESCRIPTION OF PROCEDURE: Access obtained in the left femoral artery. A 6-Persian sheath was placed. Abdominal aortogram demonstrated widely patent abdominal aorta and iliacs bilaterally. Proximal femoral arteries bilaterally had mild disease. Distal vessels could not be seen. The catheter was then advanced from the left femoral artery to the right superficial femoral artery (third-order) catheter placement. An 80% stenosis of the distal right superficial femoral artery. Infrapopliteal vessels were not well seen. The catheter was then advanced from the left femoral artery to the right posterior tibial artery. The right anterior tibial artery is completely occluded. Two-vessel runoff via the peroneal and posterior tibial arteries. The left femoral artery had a proximal 80% stenosis with two-vessel runoff to the left foot. The decision was made to intervene on the right femoral artery. The patient received 99992 units of intravenous heparin, oral aspirin, and Brilinta for anticoagulation. The sheath was exchanged to a 6-Persian 45 cm sheath, advanced from the left femoral artery to the right superficial femoral artery. Orbital atherectomy of the right femoral artery resulted in large amounts of visible thrombus, for which manual aspiration and secondary thrombectomy of the right femoral artery was necessary. Balloon angioplasty with a 7 mm drug-coated balloon was performed. Excellent end result, less than 10% residual stenosis, two-vessel runoff to the right foot. No complications. Left groin sheath repaired using Perclose closure device. The patient discharged home same day. MD BITA Phelps/LIDIAL /[id number]
--- NOTE | 2019-05-29 11:20 | NUR ---
Patient IV removed. Patient dressed and discharge instructions given to him and his . Patient with no complaints of pain. Patient access site dry and intact. Patient wheeled out to lobby with family member.
--- NOTE | 2019-05-29 12:48 | NUR ---
Patient returned to hospital with active bleeding from access site Left Femoral. Dr Larry notified. Dr Larry ordered to hold pressure Lt groin only. Pt moved to [place] 20 after 20 min . Bleeding controlled and manual hemostasis acheived. Pressure held an additional 15 minutes. Sterile dressing applied and pressure dressing added. No hematoma or bleeding noted.
--- NOTE | 2019-05-29 12:51 | NUR ---
Patient discharge instructions reviewed. Patient and wheeled to lobby.
== END | disposition home or self-care (01) ==
LOC: CATH LAB 06:09
PROVIDERS: ATTEND Internal Medicine Interventional Cardiology
DX: I70.213 Atherosclerosis of native arteries of extremities with intermittent claudication, bilateral legs (principal); I25.708 Atherosclerosis of coronary artery bypass graft(s), unspecified, with other forms of angina pectoris; I10 Essential (primary) hypertension; Z01.812 Encounter for preprocedural laboratory examination; Z79.02 Long term (current) use of antithrombotics/antiplatelets; Z79.82 Long term (current) use of aspirin; Z68.38 Body mass index [BMI] 38.0-38.9, adult; Z95.1 Presence of aortocoronary bypass graft
CPT/HCPCS: 36415; 37186; 37225; 75625; 80053; 85025; 85610; C1724; C1725; C1769 ×2; C1887 ×2; J1644; J2001; J2250; J7030; Q9967; 75630; J3010

== ENCOUNTER → 2019-07-03 | Day surgery (SDC) | payer MEDICARE ==
[2019-06-29 15:26] LABS: BASOPHILS # (AUTO) 0.1 (0.0-0.1); BASOPHILS % 0.7 % (0.0-1.0); EOSINOPHILS # (AUTO) 0.3 (0.0-0.4); EOSINOPHILS % 2.3 % (0.0-6.0); HEMATOCRIT 40.4 % (38.2-49.6); LYMPHOCYTES # (AUTO) 3.7 (1.0-3.2); LYMPHOCYTES % 24.4 % (18.0-39.1); MEAN CORPUSCULAR HGB CONC 32.2 g/dL (31-35); MONOCYTES # (AUTO) 0.7 (0.2-0.8); MONOCYTES % 4.5 % (4.4-11.3); NEUTROPHILS # (AUTO) 10.2 (2.1-6.9); NEUTROPHILS % 67.7 % (38.7-80.0); PLATELET COUNT 302 x10e3/uL (140-360); RED BLOOD COUNT 4.49 x10e6/uL (4.3-5.7); RED CELL DISTRIBUTION WIDTH 14.1 % (11.7-14.4)
[2019-06-29 15:39] LABS: INR 0.93
[2019-06-29 15:49] LABS: ALANINE AMINOTRANSFERASE 21 IU/L (0-55); ALBUMIN 3.9 g/dL (3.5-5.0); ALKALINE PHOSPHATASE 83 IU/L (40-150); ANION GAP 14.3 mmol/L (8-16); BLOOD UREA NITROGEN 21 mg/dL (7-26); BUN/CREATININE RATIO 20 (6-25); CALCIUM 9.5 mg/dL (8.4-10.2); CARBON DIOXIDE 24 mmol/L (22-29); CHLORIDE 106 mmol/L (98-107); CREATININE, SERUM 1.04 mg/dL (0.72-1.25); EST GLOMERULAR FILTRATION RATE > 60 ML/MIN (60-); GLUCOSE 96 mg/dL (74-118); POTASSIUM 4.3 mmol/L (3.5-5.1); SODIUM 140 mmol/L (136-145)
[~2019-07-03] VITALS: Ht 177.8 cm; Wt 113.4 kg
[~2019-07-03] MED LIST changes: +ALPRAZOLAM 0.5 MG TAB ONE; +ASPIRIN 325 MG TAB ONE; +CRESTOR10 MG PO; +DIPHENHYDRAMINE HCL 25 MG CAP ONE; +FENTANYL CITRATE/PF 100MCG/2 ML INJ ONE; +HEPARIN SOD/SOD CHLORIDE 2,000 ML ONE; +IOPAMIDOL 300MG/ML 100 ML INFUS..BTL IV ONE; +LIDOCAINE HCL 2% LOCAL 20 ML VIAL ONE; +MIDAZOLAM HCL 2 MG/2 ML VIAL ONE; +PRASUGREL 10 MG TAB ONE; +SODIUM CHLORIDE 0.9% 1000ML 1,000 ML ONE; +SODIUM CHLORIDE 0.9% 50ML 50 ML ONE; +VERAPAMIL HCL 2.5 MG/ML 2 ML VIAL ONE
[2019-07-03 07:52] VITALS: BP 149/71
[2019-07-03 09:00] VITALS: BP 134/69
--- NOTE | 2019-07-03 09:00 | NUR ---
0900 Bedside report received from Brennen URIBE. Identifier x2 Alert oriented and appropriate, PERRLA, respirations even and unlabored to room air. Pulses x4 extremities equal and strong. Pedal pulses PT/DP x4 Cap fill brisk < 3 sec. Skin warm and dry integrity appears D/I. IV 20g to left ac at 100cchr presents healthy w/o s/s of infiltration or complaint. Abdomen soft and supple. pt offered toileting, denies need to urinate or defecate. No personal affects with patient. Pt and family verbalizes understanding of POC. Currently w/o complaint of pain or need.Rt Mynx site Dry and intact. NO gross issues pain,pallor, pressure or dysrhythmia.No hematoma to site aware of down time till 1000am. Family at bedside and assisted with po intake. jordan/elmira
[2019-07-03 09:15] VITALS: BP 129/70
[2019-07-03 09:30] VITALS: BP 132/71
[2019-07-03 09:44] VITALS: BP 130/70
[2019-07-03 10:00] VITALS: BP 137/77
--- NOTE | 2019-07-03 10:00 | NUR ---
1000 Pt meets DC criteria. right Mynx assessed for s/s of complication and presence of hematoma. XXXXX warm, dry, no discolor, and pulses present. IV removed from left ac. Distal tip appears intact. VS WNL. Pt denies pain, sob, or need at this time. Family at bedside. Review of discharge paperwork and follow up instructions. verbalized understanding. Pt to wheelchair and transported to front of hospital. Transferred to private vehicle under own strength w/o incident with DC paperwork in hand. - jordan/rn
--- NOTE | 2019-07-03 11:48 | Operative Report ---
DATE OF PROCEDURE: 07/03/2019 SURGEON: Gordy Larry MD INDICATIONS: Peripheral arterial disease, claudication of left lower extremity. PROCEDURES PERFORMED: 1. Third-order catheter placement in right femoral artery, left superficial femoral artery with unilateral extremity angiogram. 2. Additional third-order catheter placement from the right femoral artery, left posterior tibial artery with additional vessel angiogram. 3. Atherectomy and drug balloon angioplasty of the left femoral artery. 4. Secondary thrombectomy of the left femoral artery. 5. Atherectomy and drug balloon angioplasty to the left posterior tibial artery. 6. Deployment of right groin Mynx closure device. COMPLICATIONS: None. BLOOD LOSS: Minimal. RECOMMENDATIONS: Dual antiplatelet therapy. DESCRIPTION OF PROCEDURE: Access was obtained in the right femoral artery. A 6-Polish sheath was placed and advanced in the right femoral artery. Left superficial femoral artery for third-order catheter placement. Angiography of the left femoral artery revealed 80% stenosis. The mid left femoral artery and left tibial vessels were not well visualized. The catheter was advanced in the right femoral artery. The left anterior tibial artery which was completely occluded. Left posterior tibial artery had a distal 90% stenosis. Peroneal artery comminuted at the ankle with two vessel runoff to the left foot. A decision was made to intervene on the left femoral and posterior tibial arteries. The patient received 12,000 units of intravenous heparin for anticoagulation. The sheath was exchanged to a 6-Polish 45 cm sheath advanced in the right femoral artery. Left superficial femoral artery lesions were crossed using a Glidewire, which was exchanged to a ViperWire. Orbital atherectomy of the posterior tibial and femoral arteries were performed. Large amounts of visible thrombus were generated in the left femoral artery necessitating secondary aspiration thrombectomy, balloon angioplasty, left femoral artery with a 7 mm drug-eluting balloon was performed and a balloon angioplasty of the left posterior tibial artery performed with a 4 mm balloon with excellent end result, two vessel runoff. No complications. Right groin repaired using Mynx closure device. The patient was discharged home same day. Gordy Larry MD KSB/MODL /[id number]
== END | disposition home or self-care (01) ==
LOC: CATH LAB 06:11
PROVIDERS: ATTEND Internal Medicine Interventional Cardiology
DX: I70.212 Atherosclerosis of native arteries of extremities with intermittent claudication, left leg (principal); I25.708 Atherosclerosis of coronary artery bypass graft(s), unspecified, with other forms of angina pectoris; I10 Essential (primary) hypertension; J45.909 Unspecified asthma, uncomplicated; I35.0 Nonrheumatic aortic (valve) stenosis; Z01.812 Encounter for preprocedural laboratory examination; Z79.82 Long term (current) use of aspirin; Z68.38 Body mass index [BMI] 38.0-38.9, adult; Z95.1 Presence of aortocoronary bypass graft; Z82.49 Family history of ischemic heart disease and other diseases of the circulatory system
CPT/HCPCS: 36415; 37186; 37225; 37229; 75710; 80053; 85025; 85610; C1724; C1725; C1760; C1769; C1887 ×2; C2623 ×2; J2001; J2250; J3010; J7030; Q9967; 36247

== ENCOUNTER → 2020-04-04 | Day surgery (SDC) | payer OTHER ==
[2020-04-01 10:24] LABS: BASOPHILS # (AUTO) 0.1 (0.0-0.1); BASOPHILS % 0.7 % (0.0-1.0); EOSINOPHILS # (AUTO) 0.4 (0.0-0.4); EOSINOPHILS % 4.2 % (0.0-6.0); HEMATOCRIT 38.9 % (38.2-49.6); HEMOGLOBIN 12.8 g/dL (14.0-18.0); LYMPHOCYTES # (AUTO) 2.8 (1.0-3.2); LYMPHOCYTES % 29.1 % (18.0-39.1); MEAN CORPUSCULAR HEMOGLOBIN 29.4 pg (28-32); MEAN CORPUSCULAR HGB CONC 32.9 g/dL (31-35); MEAN CORPUSCULAR VOLUME 89.4 fL (81-99); MONOCYTES # (AUTO) 0.8 (0.2-0.8); MONOCYTES % 7.8 % (4.4-11.3); NEUTROPHILS # (AUTO) 5.7 (2.1-6.9); NEUTROPHILS % 57.9 % (38.7-80.0); PLATELET COUNT 271 x10e3/uL (140-360); RED BLOOD COUNT 4.35 x10e6/uL (4.3-5.7); RED CELL DISTRIBUTION WIDTH 13.6 % (11.7-14.4)
[2020-04-01 10:58] LABS: ALANINE AMINOTRANSFERASE 21 IU/L (0-55); ALBUMIN 3.4 g/dL (3.5-5.0); ALBUMIN/GLOBULIN RATIO 0.9 (0.8-2.0); ALKALINE PHOSPHATASE 95 IU/L (40-150); ANION GAP 11.4 mmol/L (8-16); BLOOD UREA NITROGEN 14 mg/dL (7-26); BUN/CREATININE RATIO 13 (6-25); CALCIUM 9.3 mg/dL (8.4-10.2); CARBON DIOXIDE 28 mmol/L (22-29); CHLORIDE 105 mmol/L (98-107); CREATININE, SERUM 1.11 mg/dL (0.72-1.25); EST GLOMERULAR FILTRATION RATE > 60 ML/MIN (60-); GLUCOSE 107 mg/dL (74-118); POTASSIUM 4.4 mmol/L (3.5-5.1); SODIUM 140 mmol/L (136-145)
[2020-04-04] VITALS (7 sets, daily range): BP systolic 153–185; BP diastolic 70–93
[~2020-04-04] VITALS: Ht 177.8 cm; Wt 115.7 kg
[~2020-04-04] MED LIST changes: -ASPIRIN 325 MG TAB ONE; +CLOPIDOGREL75 MG PO; +FINASTERIDE5 MG PO; +HYDROCODONE/APAP 5MG-325MG TAB ONE; -IOPAMIDOL 300MG/ML 100 ML INFUS..BTL IV ONE; +IOPAMIDOL 370 MG/ML 200 ML INFUS..BTL INJ ONE; -PRASUGREL 10 MG TAB ONE; -SODIUM CHLORIDE 0.9% 50ML 50 ML ONE; -VERAPAMIL HCL 2.5 MG/ML 2 ML VIAL ONE
--- NOTE | 2020-04-04 12:45 | NUR ---
pt in CCL 10 , prepped for procedure. Alert oriented and appropriate, PERRLA, respirations even and unlabored to room air. Pulses x4 extremities equal and palpable. Cap fill brisk < 3 sec. Skin warm and dry integrity appears intact in general. IV 20g x1 started and presents healthy w/o s/s of infiltration or complaint. Abdomen soft and supple. pt offered toileting, denies need to urinate or defecate. Personal affects with patient. Family at bedside. Pt and family verbalizes understanding of POC. Educated editorial cartoonist light use after pre-Op Meds benadryl and xanax given. bed low and locked, side rails up x2 and call light at side. Awaiting for physician arrival. surgical mask being worn -cgf
--- NOTE | 2020-04-04 16:08 | NUR ---
1608pm RECEIVING NOTE [facility]............................................................... Bedside report received from JOJO Casas. Identifierx2. Alert oriented and appropriate, PERRLA, respirations even and unlabored to room air. Pulses x4 extremities equal and strong. Pedal pulses PT/DP X4Cap fill brisk < 3 sec. Rt Groin angio seal NO gross issues pain pallor pressure or dysrhythmia. Skin warm and dry integrity appears . IV 20g to left ac 10cchr presents healthy w/o s/s of infiltration or complaint. Abdomen soft and supple. pt offered toileting, denies need to urinate or defecate. No personal affects with patient. Family at bedside. Pt and family verbalizes understanding of POC. Remain down till 530pm. Currently w/o complaint of pain or need. ds/rn
--- NOTE | 2020-04-04 17:20 | NUR ---
1720 Rt groin discomfort No gross issues pain,pallor or dysrhythmia.Medicated Hydrocodone 5/325 po Tolerated po intake. ds/rn
--- NOTE | 2020-04-04 18:00 | NUR ---
1800pm [facility] DISCHARGE NURSING NOTE Pt meets DC criteria. Rt femoral angio assessed for s/s of complication and presence of hematoma. Skin warm, dry, no discolor, and pulses present. IV removed from left ac. Distal tip appears intact. VS WNL. Pt denies pain, sob, or need at this time. Family at bedside. Review of discharge paperwork and follow up instructions. verbalized understanding. Pt to wheelchair and transported to front of hospital. Transferred to private vehicle under own strength w/o incident with DC paperwork in hand. - jordan/elmira
--- NOTE | 2020-04-04 20:04 | Operative Report ---
DATE OF PROCEDURE: 04/04/2020 SURGEON: Gordy Larry MD INDICATIONS: Coronary artery disease, angina with abnormal stress test. PROCEDURES PERFORMED: 1. Left heart catheterization, selective coronary angiography. 2. Selective cannulation of two venous bypass conduits. 3. Conscious sedation administration, hemodynamic, neurological monitoring and recovery by general laborer RN, supervision by MD for 35 minutes. 4. Nonselective iliac angiography with closure of device placement. COMPLICATIONS: None. BLOOD LOSS: Minimal. RECOMMENDATIONS: Medical therapy. DESCRIPTION OF PROCEDURE: Access obtained in the right femoral artery. A 6-Sami sheath was placed. Coronary angiography demonstrated patent left main. Left stent in the left anterior descending artery was widely patent. Circumflex was occluded in its distal portion. Diagonal artery is occluded. Right coronary artery was nondominant with severe disease. Saphenous vein bypass graft to diagonal artery with 20% to 30% stenosis. Saphenous vein bypass graft to left posterior descending artery is widely patent. Left internal mammary artery was not visualized. No intervention deemed necessary. Right groin angiogram, right iliac artery angiogram was performed with adequate sheath placement closure device, Angio-Seal was deployed without complications. The patient discharged home same day. Gordy Larry MD KSB/MODL /[id number]
== END | disposition home or self-care (01) ==
LOC: CATH LAB 09:56
PROVIDERS: ATTEND Internal Medicine Interventional Cardiology
DX: I25.708 Atherosclerosis of coronary artery bypass graft(s), unspecified, with other forms of angina pectoris (principal); R94.39 Abnormal result of other cardiovascular function study; R09.89 Other specified symptoms and signs involving the circulatory and respiratory systems; I35.0 Nonrheumatic aortic (valve) stenosis; J45.909 Unspecified asthma, uncomplicated; I10 Essential (primary) hypertension; E78.00 Pure hypercholesterolemia, unspecified; Z01.812 Encounter for preprocedural laboratory examination; Z01.818 Encounter for other preprocedural examination; Z11.59 Encounter for screening for other viral diseases; Z79.02 Long term (current) use of antithrombotics/antiplatelets; Z79.82 Long term (current) use of aspirin; Z68.38 Body mass index [BMI] 38.0-38.9, adult; Z95.1 Presence of aortocoronary bypass graft; Z95.5 Presence of coronary angioplasty implant and graft; Z82.49 Family history of ischemic heart disease and other diseases of the circulatory system
CPT/HCPCS: 36415; 80053; 85025; 87635; 93455; 99152; 99153; C1760; C1769; J2001; J2250; J3010; J7030; Q9967

== ENCOUNTER 2021-04-15 14:16 | Inpatient (IN) | payer MEDICARE, OTHER ==
[~2021-04-15] VITALS: Ht 177.8 cm; Wt 112.0 kg
[~2021-04-15 14:16] MED LIST changes: -ALPRAZOLAM 0.5 MG TAB ONE; -DIPHENHYDRAMINE HCL 25 MG CAP ONE; -FENTANYL CITRATE/PF 100MCG/2 ML INJ ONE; -HEPARIN SOD/SOD CHLORIDE 2,000 ML ONE; -HYDROCODONE/APAP 5MG-325MG TAB ONE; -IOPAMIDOL 370 MG/ML 200 ML INFUS..BTL INJ ONE; -LIDOCAINE HCL 2% LOCAL 20 ML VIAL ONE; -MIDAZOLAM HCL 2 MG/2 ML VIAL ONE; -SODIUM CHLORIDE 0.9% 1000ML 1,000 ML ONE
[2021-04-15 14:59] LABS: BASOPHILS % 0.4 % (0.0-1.0); EOSINOPHILS # (AUTO) 0.2 (0.0-0.4); HEMATOCRIT 36.8 % (38.2-49.6); HEMOGLOBIN 11.6 g/dL (14.0-18.0); LYMPHOCYTES # (AUTO) 3.2 (1.0-3.2); LYMPHOCYTES % 28.3 % (18.0-39.1); MEAN CORPUSCULAR HEMOGLOBIN 27.1 pg (28-32); MEAN CORPUSCULAR HGB CONC 31.5 g/dL (31-35); MONOCYTES # (AUTO) 0.8 (0.2-0.8); NEUTROPHILS % 61.9 % (38.7-80.0); PLATELET COUNT 287 x10e3/uL (140-360); RED BLOOD COUNT 4.28 x10e6/uL (4.3-5.7); RED CELL DISTRIBUTION WIDTH 14.9 % (11.7-14.4)
[2021-04-15 15:13] LABS: INR 0.92
[2021-04-15 15:17] LABS: ALBUMIN 3.7 g/dL (3.5-5.0); ANION GAP 14.9 mmol/L (8-16); CALCIUM 8.7 mg/dL (8.4-10.2); CREATININE, SERUM 1.7 mg/dL (0.72-1.25); POTASSIUM 3.9 mmol/L (3.5-5.1)
[2021-04-15] MEDS ORDERED: SODIUM CHLORIDE 0.9% 1000ML 1,000 ML IV ONE (16:00)
[2021-04-15] MEDS ORDERED: SODIUM CHLORIDE 0.9% 100 ML ONE (16:24)
[2021-04-15] MEDS ORDERED: IOPAMIDOL 370 MG/ML 200 ML INFUS..BTL INJ ONE (16:24)
[2021-04-15] MEDS ORDERED: ONDANSETRON HCL INJ 2MG/ML 2ML 2 MG/ML VIAL IV PRN (17:00)
[2021-04-15] MEDS ORDERED: ASPIRIN 81 MG CHEW TAB PO ONE (17:00)
[2021-04-15 19:20] LABS: CLARITY,URINE CLEAR (CLEAR); COLOR,URINE AMBER (YELLOW); KETONES,URINE TRACE (NEGATIVE); LEUKOCYTE ESTERASE ,URINE NEGATIVE (NEGATIVE); NITRITE,URINE NEGATIVE (NEGATIVE); PROTEIN,URINE DIPSTICK NEGATIVE (NEGATIVE); URINE UROBILINOGEN 0.2 mg/dL (0.2 - 1)
[2021-04-15 19:32] LABS: CALCIUM OXALATE CRYSTALS,UR MODERATE (FEW)
[2021-04-15] MEDS: CARVEDILOL 12.5 MG TAB PO SCH (22:00)
[2021-04-15] MEDS: FINASTERIDE 5 MG TAB PO SCH (22:00)
[2021-04-15] MEDS ORDERED: HYDRALAZINE HCL 20 MG/ML VIAL IV PRN (22:00)
[2021-04-15] MEDS ORDERED: FUROSEMIDE INJ 10 MG/ML 2 ML VIAL IV ONE (22:00)
[2021-04-15] MEDS ORDERED: AMLODIPINE BESY10 MG PO (22:39)
[2021-04-16] VITALS (8 sets, daily range): BP systolic 115–146; BP diastolic 63–93
[2021-04-16 01:45] LABS: CREATINE KINASE MB 1.6 ng/mL (0-5.0)
[2021-04-16 04:43] LABS: BASOPHILS % 0.4 % (0.0-1.0); EOSINOPHILS # (AUTO) 0.4 (0.0-0.4); EOSINOPHILS % 4.2 % (0.0-6.0); HEMATOCRIT 34.6 % (38.2-49.6); HEMOGLOBIN 10.6 g/dL (14.0-18.0); LYMPHOCYTES # (AUTO) 4.3 (1.0-3.2); LYMPHOCYTES % 42.2 % (18.0-39.1); MEAN CORPUSCULAR HEMOGLOBIN 26.5 pg (28-32); MEAN CORPUSCULAR HGB CONC 30.6 g/dL (31-35); MEAN CORPUSCULAR VOLUME 86.5 fL (81-99); MONOCYTES # (AUTO) 0.9 (0.2-0.8); MONOCYTES % 8.9 % (4.4-11.3); NEUTROPHILS # (AUTO) 4.5 (2.1-6.9); NEUTROPHILS % 43.9 % (38.7-80.0); PLATELET COUNT 261 x10e3/uL (140-360); RED CELL DISTRIBUTION WIDTH 15.2 % (11.7-14.4)
[2021-04-16 05:11] LABS: CALCIUM 8.4 mg/dL (8.4-10.2); CREATININE, SERUM 1.36 mg/dL (0.72-1.25)
[2021-04-16] MEDS ORDERED: ASPIRIN CHEW81 MG PO (08:35)
[2021-04-16] MEDS: TAMSULOSIN HCL 0.4 MG CAP PO SCH (09:25)
[2021-04-16] MEDS: FINASTERIDE 5 MG TAB PO SCH ×2 (09:29→17:46)
[2021-04-16] MEDS: LEVOTHYROXINE SODIUM 75 MCG TAB PO SCH (09:30)
[2021-04-16] MEDS: CARVEDILOL 12.5 MG TAB PO SCH ×2 (09:30→17:46)
[2021-04-16 09:36] LABS: CREATINE KINASE MB 1.3 ng/mL (0-5.0)
[2021-04-16] MEDS ORDERED: ONDANSETRON HCL 4 MG ORAL DISINTEGRATING TAB PO PRN (10:00)
[2021-04-16] MEDS ORDERED: POTASSIUM CHLORIDE 10MEQ EA PO ONE (10:15)
[2021-04-16] MEDS ORDERED: FUROSEMIDE INJ 10 MG/ML 4 ML VIAL IV ONE (10:15)
[2021-04-17] VITALS (8 sets, daily range): BP systolic 127–156; BP diastolic 64–70
[2021-04-17 05:02] LABS: ANION GAP 14.9 mmol/L (8-16); BLOOD UREA NITROGEN 23 mg/dL (7-26); BUN/CREATININE RATIO 21 (6-25); CALCIUM 8.8 mg/dL (8.4-10.2); CARBON DIOXIDE 24 mmol/L (22-29); CHLORIDE 108 mmol/L (98-107); EST GLOMERULAR FILTRATION RATE > 60 ML/MIN (60-); GLUCOSE 100 mg/dL (74-118); POTASSIUM 4.9 mmol/L (3.5-5.1); SODIUM 142 mmol/L (136-145)
[2021-04-17] MEDS: CARVEDILOL 12.5 MG TAB PO SCH ×2 (09:41→17:58)
[2021-04-17] MEDS: TAMSULOSIN HCL 0.4 MG CAP PO SCH (09:42)
[2021-04-17] MEDS: POTASSIUM CHLORIDE 10MEQ EA PO SCH (09:43)
[2021-04-17] MEDS: LEVOTHYROXINE SODIUM 75 MCG TAB PO SCH (09:44)
[2021-04-17] MEDS: FINASTERIDE 5 MG TAB PO SCH ×2 (09:44→17:57)
[2021-04-17] MEDS: FUROSEMIDE INJ 10 MG/ML 4 ML VIAL IV SCH (09:44)
[2021-04-17] MEDS: BENZONATATE 100 MG CAP PO PRN (21:15)
[2021-04-18] VITALS (8 sets, daily range): BP systolic 103–157; BP diastolic 68–97
[2021-04-18] MEDS: LEVOTHYROXINE SODIUM 75 MCG TAB PO SCH (09:59)
[2021-04-18] MEDS: FUROSEMIDE INJ 10 MG/ML 4 ML VIAL IV SCH (09:59)
[2021-04-18] MEDS: TAMSULOSIN HCL 0.4 MG CAP PO SCH (09:59)
[2021-04-18] MEDS: FINASTERIDE 5 MG TAB PO SCH ×2 (09:59→17:31)
[2021-04-18] MEDS: POTASSIUM CHLORIDE 10MEQ EA PO SCH (09:59)
[2021-04-18] MEDS: CARVEDILOL 12.5 MG TAB PO SCH ×2 (10:03→17:31)
[2021-04-18] MEDS: BENZONATATE 100 MG CAP PO PRN (19:59)
[2021-04-19] VITALS (9 sets, daily range): BP systolic 126–138; BP diastolic 60–84
[2021-04-19] MEDS: TAMSULOSIN HCL 0.4 MG CAP PO SCH (08:57)
[2021-04-19] MEDS: FINASTERIDE 5 MG TAB PO SCH ×2 (08:57→17:00)
[2021-04-19] MEDS: POTASSIUM CHLORIDE 10MEQ EA PO SCH (08:57)
[2021-04-19] MEDS: LEVOTHYROXINE SODIUM 75 MCG TAB PO SCH (08:57)
[2021-04-19] MEDS: FUROSEMIDE INJ 10 MG/ML 4 ML VIAL IV SCH (08:57)
[2021-04-19] MEDS: CARVEDILOL 12.5 MG TAB PO SCH ×2 (08:58→17:00)
[2021-04-19] MEDS: BENZONATATE 100 MG CAP PO PRN (20:56)
[2021-04-20] VITALS (8 sets, daily range): BP systolic 104–148; BP diastolic 53–88
[2021-04-20] MEDS: FUROSEMIDE INJ 10 MG/ML 4 ML VIAL IV SCH (08:08)
[2021-04-20] MEDS: CLOPIDOGREL BISULFATE 75 MG TAB PO SCH (08:09)
[2021-04-20] MEDS: TAMSULOSIN HCL 0.4 MG CAP PO SCH (08:09)
[2021-04-20] MEDS: FINASTERIDE 5 MG TAB PO SCH ×2 (08:09→17:11)
[2021-04-20] MEDS: LEVOTHYROXINE SODIUM 75 MCG TAB PO SCH (08:09)
[2021-04-20] MEDS: CARVEDILOL 12.5 MG TAB PO SCH ×2 (08:09→17:11)
[2021-04-20] MEDS: POTASSIUM CHLORIDE 10MEQ EA PO SCH (11:03)
[2021-04-21] VITALS: BP 170/71
[2021-04-21 04:00] VITALS: BP 122/78
[2021-04-21 07:49] VITALS: BP 155/69
[2021-04-21] MEDS: FUROSEMIDE INJ 10 MG/ML 4 ML VIAL IV SCH (08:56)
[2021-04-21] MEDS: TAMSULOSIN HCL 0.4 MG CAP PO SCH (08:57)
[2021-04-21] MEDS: FINASTERIDE 5 MG TAB PO SCH (08:57)
[2021-04-21] MEDS: CLOPIDOGREL BISULFATE 75 MG TAB PO SCH (08:57)
[2021-04-21] MEDS: LEVOTHYROXINE SODIUM 75 MCG TAB PO SCH (08:57)
[2021-04-21] MEDS: CARVEDILOL 12.5 MG TAB PO SCH (08:59)
[2021-04-21] MEDS: POTASSIUM CHLORIDE 10MEQ EA PO SCH (08:59)
[2021-04-21 09:51] LABS: BASOPHILS # (AUTO) 0.1 (0.0-0.1); BASOPHILS % 0.8 % (0.0-1.0); EOSINOPHILS # (AUTO) 0.6 (0.0-0.4); EOSINOPHILS % 4.2 % (0.0-6.0); HEMATOCRIT 45.8 % (38.2-49.6); HEMOGLOBIN 14.4 g/dL (14.0-18.0); LYMPHOCYTES # (AUTO) 3.6 (1.0-3.2); LYMPHOCYTES % 27.6 % (18.0-39.1); MEAN CORPUSCULAR HEMOGLOBIN 27.2 pg (28-32); MEAN CORPUSCULAR HGB CONC 31.4 g/dL (31-35); MEAN CORPUSCULAR VOLUME 86.4 fL (81-99); MONOCYTES # (AUTO) 0.8 (0.2-0.8); MONOCYTES % 6.2 % (4.4-11.3); NEUTROPHILS # (AUTO) 7.8 (2.1-6.9); NEUTROPHILS % 60.5 % (38.7-80.0); PLATELET COUNT 389 x10e3/uL (140-360); RED CELL DISTRIBUTION WIDTH 14.6 % (11.7-14.4)
[2021-04-21 10:11] LABS: ANION GAP 16.9 mmol/L (8-16); CALCIUM 10.3 mg/dL (8.4-10.2); CREATININE, SERUM 1.39 mg/dL (0.72-1.25); POTASSIUM 4.9 mmol/L (3.5-5.1)
[2021-04-21 11:26] VITALS: BP 115/77
[2021-04-21 11:54] VITALS: BP 115/77
[2021-04-21] MEDS: BENZONATATE 100 MG CAP PO PRN (13:08)
[2021-04-21 15:38] VITALS: BP 155/86
[2021-04-22] MEDS ORDERED: FUROSEMIDE 40 MG TAB PO SCH (09:00)
== END 2021-04-21 16:29 | disposition short-term general hospital (02) | DRG 300 ==
LOC: ER 14:19 → ERHOLD 17:57 → MED/SURG2 20:28 → OBSVTOIN 04-16 09:19 → INTOOBSV 04-16 09:19
PROVIDERS: ADMIT Internal Medicine; ATTEND Internal Medicine
DX: I77.74 Dissection of vertebral artery (principal); I50.42 Chronic combined systolic (congestive) and diastolic (congestive) heart failure; I11.0 Hypertensive heart disease with heart failure; I25.10 Atherosclerotic heart disease of native coronary artery without angina pectoris; Z95.1 Presence of aortocoronary bypass graft; I73.9 Peripheral vascular disease, unspecified; E78.5 Hyperlipidemia, unspecified; I65.23 Occlusion and stenosis of bilateral carotid arteries; Z95.5 Presence of coronary angioplasty implant and graft; N40.0 Benign prostatic hyperplasia without lower urinary tract symptoms; E03.9 Hypothyroidism, unspecified; Z20.822 Contact with and (suspected) exposure to COVID-19
CPT/HCPCS: 36415; 70450; 70496; 70498; 70544; 70547; 70551; 71045; 80048; 80053; 81001; 82550; 82553; 83880; 84484; 85025; 85610; 93005; 99284; G0378; J0360; J1940; J7030; J7050; Q0162; Q9967; U0002

== ENCOUNTER 2022-02-02 10:14 | Observation (INO) | payer OTHER ==
[2022-01-28 10:27] LABS: BASOPHILS # (AUTO) 0.1 (0.0-0.1); BASOPHILS % 0.8 % (0.0-1.0); EOSINOPHILS # (AUTO) 0.5 (0.0-0.4); HEMATOCRIT 34.3 % (38.2-49.6); HEMOGLOBIN 10.3 g/dL (14.0-18.0); LYMPHOCYTES # (AUTO) 2.7 (1.0-3.2); LYMPHOCYTES % 26.7 % (18.0-39.1); MEAN CORPUSCULAR HEMOGLOBIN 22.6 pg (28-32); MEAN CORPUSCULAR VOLUME 75.4 fL (81-99); MONOCYTES # (AUTO) 0.6 (0.2-0.8); MONOCYTES % 6.1 % (4.4-11.3); NEUTROPHILS # (AUTO) 6.1 (2.1-6.9); NEUTROPHILS % 61.1 % (38.7-80.0); PLATELET COUNT 304 x10e3/uL (140-360); RED BLOOD COUNT 4.55 x10e6/uL (4.3-5.7); RED CELL DISTRIBUTION WIDTH 19.3 % (11.7-14.4)
[2022-01-28 10:55] LABS: ALBUMIN 3.5 g/dL (3.5-5.0); ALBUMIN/GLOBULIN RATIO 0.9 (0.8-2.0); ANION GAP 12.8 mmol/L (8-16); CALCIUM 9.3 mg/dL (8.4-10.2); CREATININE, SERUM 1.04 mg/dL (0.72-1.25); POTASSIUM 4.8 mmol/L (3.5-5.1)
[2022-02-02] VITALS (18 sets, daily range): BP systolic 124–149; BP diastolic 61–78
[~2022-02-02] VITALS: Ht 177.8 cm; Wt 112.0 kg
[~2022-02-02 10:14] MED LIST changes: +ASPIRIN CHEW81 MG PO
[2022-02-02] MEDS ORDERED: DIPHENHYDRAMINE HCL 25 MG CAP ONE (11:28)
[2022-02-02] MEDS ORDERED: ALPRAZOLAM 0.5 MG TAB ONE (11:28)
[2022-02-02] MEDS ORDERED: FENTANYL CITRATE/PF 100MCG/2 ML INJ ONE (11:31)
[2022-02-02] MEDS ORDERED: HEPARIN SOD/SOD CHLORIDE 2,000 ML ONE (11:31)
[2022-02-02] MEDS ORDERED: MIDAZOLAM HCL 2 MG/2 ML VIAL ONE ×2 (11:31→13:26)
[2022-02-02] MEDS ORDERED: IOPAMIDOL 370 MG/ML 200 ML INFUS..BTL INJ ONE ×2 (11:31→13:21)
[2022-02-02] MEDS ORDERED: LIDOCAINE HCL 2% LOCAL 20 ML VIAL ONE (11:31)
[2022-02-02] MEDS ORDERED: HEPARIN SOD (PORCINE) 1000 UNIT/ML 30ML ONE (11:31)
[2022-02-02] MEDS ORDERED: SODIUM CHLORIDE 0.9% 1000ML 1,000 ML ONE (11:32)
[2022-02-02] MEDS ORDERED: IOPAMIDOL 300MG/ML 100 ML INFUS..BTL IV ONE (11:32)
[2022-02-02] MEDS ORDERED: NITROGLYCERIN/D5W 200 MCG/ML 250 ML ONE (11:32)
[2022-02-02] MEDS ORDERED: ASPIRIN 325 MG TAB ONE (13:53)
[2022-02-02] MEDS ORDERED: PRASUGREL 10 MG TAB ONE (13:53)
[2022-02-02] MEDS ORDERED: PROTAMINE SULFATE 10 MG/ML 5 ML VIAL ONE (16:40)
[2022-02-02] MEDS ORDERED: PROTAMINE SULFATE 10 MG/ML 5 ML VIAL IV ONE (16:45)
[2022-02-02] MEDS ORDERED: Morphine 4mg Syringe 4 MG/ML INJ IV PRN (20:15)
[2022-02-02] MEDS: SODIUM CHLORIDE 0.9% 1000ML 1,000 ML IV SCH (20:53)
[2022-02-03] VITALS: BP 122/60
[2022-02-03 04:00] VITALS: BP 132/56
[2022-02-03] MEDS: SODIUM CHLORIDE 0.9% 1000ML 1,000 ML IV SCH (05:40)
[2022-02-03 08:00] VITALS: BP 139/68
[2022-02-03 08:07] VITALS: BP 139/68
[2022-02-03] MEDS ORDERED: CLOPIDOGREL75 MG PO (11:54)
[2022-02-03 12:21] VITALS: BP 147/74
== END 2022-02-03 12:30 | disposition home or self-care (01) ==
LOC: CATH LAB 10:14 → MED/SURG 19:49 → INTOOBSV 19:49
PROVIDERS: ADMIT Internal Medicine Interventional Cardiology; ATTEND Internal Medicine Interventional Cardiology
DX: I70.223 Atherosclerosis of native arteries of extremities with rest pain, bilateral legs (principal); I25.119 Atherosclerotic heart disease of native coronary artery with unspecified angina pectoris; I10 Essential (primary) hypertension; E66.9 Obesity, unspecified; E78.2 Mixed hyperlipidemia; Z68.35 Body mass index [BMI] 35.0-35.9, adult; R94.39 Abnormal result of other cardiovascular function study; Z20.822 Contact with and (suspected) exposure to COVID-19
CPT/HCPCS: 36415; 37221; 75630; 76937; 80053; 83880; 85025; 93455; 93459; 99152; 99153; C1725; C1769; C1887; G0378; J1644; J2001; J2250; J2720; J3010; J7030; Q9967; U0002

== ENCOUNTER → 2022-06-08 | Day surgery (SDC) | payer OTHER ==
[2022-06-04 15:04] LABS: BASOPHILS # (AUTO) 0.1 (0.0-0.1); BASOPHILS % 0.8 % (0.0-1.0); EOSINOPHILS # (AUTO) 0.5 (0.0-0.4); EOSINOPHILS % 4.5 % (0.0-6.0); HEMATOCRIT 35.9 % (38.2-49.6); HEMOGLOBIN 10.5 g/dL (14.0-18.0); LYMPHOCYTES # (AUTO) 2.9 (1.0-3.2); LYMPHOCYTES % 27.2 % (18.0-39.1); MEAN CORPUSCULAR HEMOGLOBIN 23.7 pg (28-32); MEAN CORPUSCULAR HGB CONC 29.2 g/dL (31-35); MONOCYTES # (AUTO) 0.7 (0.2-0.8); MONOCYTES % 6.9 % (4.4-11.3); NEUTROPHILS # (AUTO) 6.3 (2.1-6.9); NEUTROPHILS % 60.1 % (38.7-80.0); PLATELET COUNT 286 x10e3/uL (140-360); RED BLOOD COUNT 4.43 x10e6/uL (4.3-5.7); RED CELL DISTRIBUTION WIDTH 18.4 % (11.7-14.4)
[2022-06-04 15:49] LABS: ALANINE AMINOTRANSFERASE 8 IU/L (0-55); ALBUMIN 3.3 g/dL (3.5-5.0); ALBUMIN/GLOBULIN RATIO 0.8 (0.8-2.0); ALKALINE PHOSPHATASE 88 IU/L (40-150); ANION GAP 13.6 mmol/L (8-16); BLOOD UREA NITROGEN 15 mg/dL (7-26); BUN/CREATININE RATIO 12 (6-25); CARBON DIOXIDE 26 mmol/L (22-29); CHLORIDE 109 mmol/L (98-107); CREATININE, SERUM 1.21 mg/dL (0.72-1.25); GLUCOSE 108 mg/dL (74-118); POTASSIUM 5.6 mmol/L (3.5-5.1); SODIUM 143 mmol/L (136-145)
[~2022-06-08] VITALS: Ht 177.8 cm; Wt 114.3 kg
[~2022-06-08] MED LIST changes: +ALPRAZOLAM 0.5 MG TAB ONE; +DIPHENHYDRAMINE HCL 25 MG CAP ONE; +FENTANYL CITRATE/PF 100MCG/2 ML INJ ONE; +HEPARIN SOD/SOD CHLORIDE 2,000 ML ONE; +IOPAMIDOL 300MG/ML 100 ML INFUS..BTL IV ONE; +MIDAZOLAM HCL 2 MG/2 ML VIAL ONE; +SODIUM CHLORIDE 0.9% 1000ML 1,000 ML ONE
[2022-06-08 11:02] VITALS: BP 130/56
[2022-06-08 15:15] VITALS: BP 133/61
[2022-06-08 15:30] VITALS: BP 144/58
[2022-06-08 15:45] VITALS: BP 145/58
[2022-06-08 16:15] VITALS: BP 145/62
== END | disposition home or self-care (01) ==
LOC: CATH LAB 09:47
PROVIDERS: ATTEND Internal Medicine Interventional Cardiology
DX: G45.9 Transient cerebral ischemic attack, unspecified (principal); I25.10 Atherosclerotic heart disease of native coronary artery without angina pectoris; I10 Essential (primary) hypertension; Z01.812 Encounter for preprocedural laboratory examination; Z20.822 Contact with and (suspected) exposure to COVID-19; Z79.02 Long term (current) use of antithrombotics/antiplatelets; Z79.82 Long term (current) use of aspirin; Z79.899 Other long term (current) drug therapy
CPT/HCPCS: 0223U; 36415; 76937; 80053; 85025; 99152; C1760; C1769; C1894; J2250; J3010; J7030; Q9967

== ENCOUNTER → 2023-02-24 | Outpatient (CLI) | payer OTHER ==
[~2023-02-24] MED LIST changes: -ALPRAZOLAM 0.5 MG TAB ONE; -DIPHENHYDRAMINE HCL 25 MG CAP ONE; -FENTANYL CITRATE/PF 100MCG/2 ML INJ ONE; -HEPARIN SOD/SOD CHLORIDE 2,000 ML ONE; -IOPAMIDOL 300MG/ML 100 ML INFUS..BTL IV ONE; -MIDAZOLAM HCL 2 MG/2 ML VIAL ONE; -SODIUM CHLORIDE 0.9% 1000ML 1,000 ML ONE
== END ==
LOC: RAD 15:15
PROVIDERS: ATTEND Family Medicine
DX: J40 Bronchitis, not specified as acute or chronic (principal)
CPT/HCPCS: 71046